=== PATIENT | male | born 1975 | race Caucasian/White ===

== ENCOUNTER → 2017-09-19 | Outpatient (CLI) | payer MEDICARE, OTHER ==
--- NOTE | 2017-09-19 10:55 | CT ---
EXAMINATION TYPE: CT chest w con DATE OF EXAM: 09/19/2017 COMPARISON: CT chest June 09, 2010. Chest x-ray September 06, 2017. HISTORY: Chronic Bullous Emphysema CT DLP: 475 mGycm. Automated Exposure Control for Dose Reduction was Utilized. TECHNIQUE: CT scan of the thorax is performed following with IV Contrast, patient injected with 100 mL of Omnipaque 300. FINDINGS: LUNGS: There is background mild upper lungs emphysematous change. There is progression on large cysti c lesion with mildly thickened peripheral wall anterior medial aspect right midlung measuring approxi mately 12 and have centimeters craniocaudal dimension coronal image 22 by 8.2 cm transversely by 6.5 cm AP diameter axial image 30. Some internal thin septa are present. Wall thickness is roughly 1 to 3 mm along right lateral margin. Findings favor a septated pulmonary cyst over bulla given wall thickn ess greater than 1 mm. No suspicious consolidation or groundglass opacity is seen. No concerning parenchymal nodule or mass is noted. No additional bulla, blebs, or cysts are present. MEDIASTINUM: There are no greater than 1 cm hilar or mediastinal lymph nodes. No cardiomegaly is se en. There is 4 vessel origin from aortic arch which is normal variant. Noted made of focal small to moderate-sized pericardial effusion or thickening anterior inferior aspect measuring up to 1.3 cm in thickness axial image 48 slightly larger versus prior, effusion is favored. Some focal coronary arter y calcification proximal LAD is noted axial image 37. OTHER: Small hemangioma left T11 vertebra coronal image 65 is redemonstrated. 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 Background mild emphysematous change noted. Also note is made of small to moderate size anterior inferior pericardial effusion increased in size from 2010 CT. No acute pulmonary process is evident.
== END | disposition home or self-care (01) ==
LOC: RADCTMAIN 09:46
PROVIDERS: ATTEND Internal Medicine
DX: J43.9 Emphysema, unspecified (principal); J98.4 Other disorders of lung; I31.3 Pericardial effusion (noninflammatory); Z88.0 Allergy status to penicillin
CPT/HCPCS: 71260; Q9967

== ENCOUNTER 2019-06-24 02:31 | Emergency (ER) | payer MEDICARE, OTHER ==
[2019-06-24 02:36] VITALS: RESP 18
--- NOTE | 2019-06-24 03:09 | ED ---
General Adult HPI - General Source: patient, police, RN notes reviewed, old records reviewed Mode of arrival: ambulatory Limitations: no limitations <Dwaine Keenan - Last Filed: 06/24/19 03:43> <Suellen De La Garza - Last Filed: 06/24/19 07:21> - General Chief complaint: Psychiatric Symptoms Stated complaint: Suicidal Time Seen by Provider: 06/24/19 02:45 - History of Present Illness Initial comments: 44-year-old male patient is ED for chief complaint of suicidal ideations. Patient reports that he is depressed [place] which is no longer be alive. Denies any plan of suicide. Denies any action to hurt himself or hurt any other people. Patient also reports that he felt that his heart was beating funny today approximately 6 hours ago. Denies any chest pain. Denies any shortness of breath. Denies any other complaints. Systemic: Pt denies fatigue, fever/chills, rash. Pt denies weakness, night sweats, weight loss. Neuro: Pt denies headache, visual disturbances, syncope or pre-syncope. HEENT: Pt denies ocular discharge or irritation, otalgia, rhinorrhea, pharyngitis or notable lymphadenopathy. Cardiopulmonary: Pt denies chest pain, SOB, dyspnea on exertion. Abdominal/GI: Pt denies abdominal pain, n/v/d. : Pt denies dysuria, burning w/ urination, frequency/urgency. Denies new onset urinary or bowel incontinence. MSK: Pt denies myalgia, loss of strength or function in extremities. Neuro: Pt denies new onset weakness, paresthesias. (Dwaine Keenan) - Related Data Home Medications Medication Instructions Recorded Confirmed Aspirin 81 mg PO DAILY 08/29/17 08/29/17 amLODIPine [Norvasc] 10 mg PO DAILY 08/29/17 08/29/17 clonazePAM [KlonoPIN] 1 mg PO DAILY PRN 08/29/17 08/29/17 risperiDONE [RisperDAL] 1 mg PO HS 08/29/17 08/29/17 Losartan Potassium [Cozaar] 25 mg PO DAILY 08/30/17 08/30/17 Previous Rx's Medication Instructions Recorded Folic Acid 1 mg PO DAILY@1200 #30 tab 08/31/17 Multivitamins, Thera [Multivitamin 1 each PO DAILY@1200 tab 08/31/17 (formulary)] Nicotine 21Mg/24Hr Patch [Habitrol] 1 patch TRANSDERM DAILY #30 patch 08/31/17 Thiamine [Vitamin B-1] 100 mg PO DAILY@1200 #30 tab 08/31/17 Allergies Allergy/AdvReac Type Severity Reaction Status Date / Time albuterol Allergy Unknown Verified 08/29/17 22:19 Penicillins Allergy Rash/Hives Verified 08/29/17 22:19 Review of Systems ROS Other: All systems not noted in ROS Statement are negative. <Dwaine Keenan - Last Filed: 06/24/19 03:43> ROS Other: All systems not noted in ROS Statement are negative. <Suellen De La Garza - Last Filed: 06/24/19 07:21> ROS Statement: Those systems with pertinent positive or pertinent negative responses have been documented in the HPI. Past Medical History Past Medical History: Hypertension Additional Past Medical History / Comment(s): panic attacks, bipolar History of Any Multi-Drug Resistant Organisms: None Reported Past Surgical History: No Surgical Hx Reported Past Psychological History: Bipolar, Panic Disorder Smoking Status: Current every day smoker Past Alcohol Use History: Daily Past Drug Use History: None Reported <Dwaine Keenan - Last Filed: 06/24/19 03:43> General Exam Limitations: no limitations <Dwaine Keenan - Last Filed: 06/24/19 03:43> - General Exam Comments Initial Comments: Constitutional: NAD, AOX3, Pt has pleasant affect. HEENT: NC/AT, trachea midline, neck supple, no lymphadenopathy. Posterior pharynx non erythematous, without exudates. External ears appear normal, without discharge. Mucous membranes moist. Eyes PERRLA, EOM intact. There is no scleral icterus. No pallor noted. Cardiopulmonary: RRR, no murmurs, rubs or gallops, no JVD noted. Lungs CTAB in anterior and posterior morales. No peripheral edema. Abdominal exam: Abdomen soft and non-distended. Abdomen non-tender to palpation in all 4 quadrants. Bowel sounds active in LLQ. No hepatosplenomegaly. No ecchymosis Neuro: CN II-XII grossly intact. No nuchal rigidity. No raccon eyes, no reeder sign, no hemotympanum. No cervical spinal tenderness. MSK: No posterior calf tenderness bilaterally, homans sign negative bilaterally. Posterior tibialis and radial pulse +2 bilaterally. Sensation intact in upper and lower extremities. Full active ROM in upper and lower extremities, 5/5 stregnth. (Dwaine Keenan) Course Vital Signs 06/24/19 02:32 Temperature 97.5 F L Pulse Rate 80 Respiratory 18 Rate Blood Pressure 122/85 O2 Sat by Pulse 99 Oximetry Medical Decision Making - EKG Data -: EKG Interpreted by Pr <Dwaine Keenan - Last Filed: 06/24/19 03:43> - Lab Data Result diagrams: 06/24/19 03:38 06/24/19 03:38 <Suellen De La Garza - Last Filed: 06/24/19 07:21> - Medical Decision Making Patient signed out to Dr De La Garza pending laboratory investigations and laboratory investigations. (Dwaine Keenan) Patient was seen and evaluated by EPS, patient was intoxicated but now sober, no acute complaints, no suicidal thoughts/plan. Patient contracts to safety, comfortable for discharge home and outpatient follow-up. (Suellen De La Garza) - Lab Data Lab Results 06/24/19 06/24/19 06/24/19 Range/Units 03:14 03:38 03:38 WBC 5.8 (3.8-10.6) k/uL RBC 5.24 (4.30-5.90) m/uL Hgb 15.9 (13.0-17.5) gm/dL Hct 48.2 (39.0-53.0) % MCV 91.9 (80.0-100.0) fL MCH 30.4 (25.0-35.0) pg MCHC 33.0 (31.0-37.0) g/dL RDW 13.7 (11.5-15.5) % Plt Count 221 (150-450) k/uL Neutrophils % 53 % Lymphocytes % 36 % Monocytes % 7 % Eosinophils % 1 % Basophils % 1 % Neutrophils # 3.0 (1.3-7.7) k/uL Lymphocytes # 2.1 (1.0-4.8) k/uL Monocytes # 0.4 (0-1.0) k/uL Eosinophils # 0.0 (0-0.7) k/uL Basophils # 0.1 (0-0.2) k/uL Sodium 139 (137-145) mmol/L Potassium 3.6 (3.5-5.1) mmol/L Chloride 104 (98-107) mmol/L Carbon Dioxide 26 (22-30) mmol/L Anion Gap 9 mmol/L BUN 7 L (9-20) mg/dL Creatinine 0.59 L (0.66-1.25) mg/dL Est GFR (CKD-EPI)AfAm >90 (>60 ml/min/1.73 sqM) Est GFR (CKD-EPI)NonAf >90 (>60 ml/min/1.73 sqM) Glucose 92 (74-99) mg/dL Calcium 9.4 (8.4-10.2) mg/dL Total Bilirubin 0.5 (0.2-1.3) mg/dL AST 37 (17-59) U/L ALT 35 (21-72) U/L Alkaline Phosphatase 83 (38-126) U/L Troponin I (0.000-0.034) ng/mL Total Protein 7.1 (6.3-8.2) g/dL Albumin 3.9 (3.5-5.0) g/dL Urine Opiates Screen Not Detected (NotDetected) Ur Oxycodone Screen Not Detected (NotDetected) Urine Methadone Screen Not Detected (NotDetected) Ur Propoxyphene Screen Not Detected (NotDetected) Ur Barbiturates Screen Not Detected (NotDetected) U Tricyclic Antidepress Not Detected (NotDetected) Ur Phencyclidine Scrn Not Detected (NotDetected) Ur Amphetamines Screen Not Detected (NotDetected) U Methamphetamines Scrn Not Detected (NotDetected) U Benzodiazepines Scrn Not Detected (NotDetected) Urine Cocaine Screen Not Detected (NotDetected) U Marijuana (THC) Screen Not Detected (NotDetected) Serum Alcohol 113 mg/dL 06/24/19 Range/Units 03:38 WBC (3.8-10.6) k/uL RBC (4.30-5.90) m/uL Hgb (13.0-17.5) gm/dL Hct (39.0-53.0) % MCV (80.0-100.0) fL MCH (25.0-35.0) pg MCHC (31.0-37.0) g/dL RDW (11.5-15.5) % Plt Count (150-450) k/uL Neutrophils % % Lymphocytes % % Monocytes % % Eosinophils % % Basophils % % Neutrophils # (1.3-7.7) k/uL Lymphocytes # (1.0-4.8) k/uL Monocytes # (0-1.0) k/uL Eosinophils # (0-0.7) k/uL Basophils # (0-0.2) k/uL Sodium (137-145) mmol/L Potassium (3.5-5.1) mmol/L Chloride (98-107) mmol/L Carbon Dioxide (22-30) mmol/L Anion Gap mmol/L BUN (9-20) mg/dL Creatinine (0.66-1.25) mg/dL Est GFR (CKD-EPI)AfAm (>60 ml/min/1.73 sqM) Est GFR (CKD-EPI)NonAf (>60 ml/min/1.73 sqM) Glucose (74-99) mg/dL Calcium (8.4-10.2) mg/dL Total Bilirubin (0.2-1.3) mg/dL AST (17-59) U/L ALT (21-72) U/L Alkaline Phosphatase (38-126) U/L Troponin I <0.012 (0.000-0.034) ng/mL Total Protein (6.3-8.2) g/dL Albumin (3.5-5.0) g/dL Urine Opiates Screen (NotDetected) Ur Oxycodone Screen (NotDetected) Urine Methadone Screen (NotDetected) Ur Propoxyphene Screen (NotDetected) Ur Barbiturates Screen (NotDetected) U Tricyclic Antidepress (NotDetected) Ur Phencyclidine Scrn (NotDetected) Ur Amphetamines Screen (NotDetected) U Methamphetamines Scrn (NotDetected) U Benzodiazepines Scrn (NotDetected) Urine Cocaine Screen (NotDetected) U Marijuana (THC) Screen (NotDetected) Serum Alcohol mg/dL - EKG Data EKG Comments: Ventricular rate 96, CT interval 166, QRS 88, QT/QTC 342/432., NORMAL EKG, NO SIGNIFICANT CHANGE FROM PRIOR. (Dwaine Keenan) Disposition <Dwaine Keenan - Last Filed: 06/24/19 03:43> Is patient prescribed a controlled substance at d/c from ED?: No <Suellen De La Garza - Last Filed: 06/24/19 07:21> Clinical Impression: Alcohol use disorder, moderate, dependence Disposition: HOME SELF-CARE Condition: Stable Instructions (If sedation given, give patient instructions): Abuse of Alcohol (DC) Referrals: Tammy Oden DO [Primary Care Provider] - 1-2 days
[2019-06-24 03:47] LABS: Basophils # (A) 0.1 k/uL (0-0.2); Basophils % (A) 1 %; Eosinophils % (A) 1 %; HCT 48.2 % (39.0-53.0); HGB 15.9 gm/dL (13.0-17.5); Lymphocytes # (A) 2.1 k/uL (1.0-4.8); Lymphocytes % (A) 36 %; MCH 30.4 pg (25.0-35.0); MCV 91.9 fL (80.0-100.0); Mean Platelet Volume 6.5; Monocytes # (A) 0.4 k/uL (0-1.0); Monocytes % (A) 7 %; Neutrophils % (A) 53 %; Platelet Count 221 k/uL (150-450); RBC 5.24 m/uL (4.30-5.90); RDW 13.7 % (11.5-15.5); WBC 5.8 k/uL (3.8-10.6)
[2019-06-24 03:53] LABS: Amphetamine Screen,Urine Not Detected (NotDetected); Barbiturate Screen,Urine Not Detected (NotDetected); Benzodiazepines Screen,Urine Not Detected (NotDetected); Cocaine Screen,Urine Not Detected (NotDetected); Methadone Screen, Urine Not Detected (NotDetected); Opiate Screen,Urine Not Detected (NotDetected); Oxycodone Screen, Urine Not Detected (NotDetected); Phencyclidine Screen,Urine Not Detected (NotDetected); Tricyclic Antidepressant,Urine Not Detected (NotDetected); Urn Cannabinoid Scrn Not Detected (NotDetected)
[2019-06-24 04:08] LABS: ALT 35 U/L (21-72); AST 37 U/L (17-59); African American GFR (CKD) >90 (>60 ml/min/1.73 sqM); Albumin 3.9 g/dL (3.5-5.0); Alkaline Phosphatase 83 U/L (38-126); Anion Gap 9 mmol/L; Blood Urea Nitrogen 7 mg/dL (9-20); Calcium 9.4 mg/dL (8.4-10.2); Carbon Dioxide 26 mmol/L (22-30); Chloride 104 mmol/L (98-107); Glucose 92 mg/dL (74-99); Potassium 3.6 mmol/L (3.5-5.1); Sodium 139 mmol/L (137-145); Total Bilirubin 0.5 mg/dL (0.2-1.3); Total Protein 7.1 g/dL (6.3-8.2)
[2019-06-24 04:12] LABS: Alcohol 113 mg/dL
[2019-06-24 08:22] VITALS: BP 96/66; PULSE 106; TEMP 99
== END 2019-06-24 08:22 | disposition home or self-care (01) ==
LOC: EC 02:31
DX: F10.20 Alcohol dependence, uncomplicated (principal); R45.851 Suicidal ideations; I10 Essential (primary) hypertension; F31.9 Bipolar disorder, unspecified; F17.200 Nicotine dependence, unspecified, uncomplicated; Z88.0 Allergy status to penicillin; Z88.8 Allergy status to other drugs, medicaments and biological substances; Z79.82 Long term (current) use of aspirin; Z79.899 Other long term (current) drug therapy; Y90.5 Blood alcohol level of 100-119 mg/100 ml
CPT/HCPCS: 82075; 36415; 93005; 80053; 84484; 85025; 80306; 99285; G0480; 80320